=== PATIENT | male | born 1940 | race Caucasian/White ===

== ENCOUNTER → 2024-02-01 12:21 | Outpatient (CLI) | payer MEDICARE, OTHER, SELFPAY ==
--- NOTE | 2024-02-01 12:26 | DI.ECHO.S_ITS ---
[facility] +---------+ [facility] : : [address] : : [place] : : [id number] : : Phone: [phone] Echocardiogram Report + + :Name: JAI TALBOT Study Date: 02/01/2024 Height: 70 in : :Hospital ReadingLocation: Weight: 200 lb : : Gender: Male BSA: 2.1 m2 : :: 1940 Age: 83 yrs BP: 184/100 mmHg: :Reason For Study: ATRIAL FIBRILLATION : :Ordering Physician: ASMITA, : :GENEVA Performed By: Ilya Goins : :Referring: GENEVA FERRARA : + + Interpretation Summary 1) Normal left ventricular thickness and size with low normal systolic function (EF 50-55%). 2) Normal right ventricular size and function. 3) The left atrium is severely dilated. 4) There is mild to moderate aortic regurgitation. 5) The aortic root and ascending aorta are mildly dilated. 6) Hypertension present during the study (BP 184/100mHg). 7) No prior Echo available for comparison. Procedure: A two-dimensional transthoracic echocardiogram with color flow and Doppler was performed. The study quality was technically good. There is no prior echocardiogram noted for this patient. The patient was in atrial fibrillation with heart rates between 59-90 bpm during the exam. Left Ventricle: The left ventricle is normal in size. There is normal left ventricular wall thickness. There is no ventricular septal defect visualized. The ejection fraction is estimated to be 50-55%. There are no focal wall motion abnormalities. Diastolic function could not be accurately assessed due to atrial fibrillation. Right Ventricle: The right ventricle is normal in size and function. Atria: The left atrium is severely dilated. Right atrial size is normal. There is no Doppler evidence for an interatrial shunt. Mitral Valve: The mitral valve is normal in structure and function. There is mild mitral regurgitation. Aortic Valve: The aortic valve is trileaflet. The aortic valve opens well. There is mild to moderate aortic regurgitation. Tricuspid Valve: The tricuspid valve is normal in structure and function. There is mild tricuspid regurgitation. Pulmonic Valve: The pulmonic valve is normal in structure and function. There is mild pulmonic regurgitation. Great Vessels: The aortic root is mildly dilated. The ascending aorta is mildly enlarged. The pulmonary artery is normal size. The inferior vena cava was not visualized. Pericardium/ Pleura There is no pericardial effusion. MMode/2D Measurements & Calculations LVIDd: 4.6 cm LVOT diam: 2.1 cm LVIDs: 2.9 cm Ao root diam: 4.2 cm FS: 36.0 % asc Aorta Diam: 4.3 cm EPSS: 0.72 cm IVSd: 0.94 cm LVPWd: 1.0 cm LV acosta. diameter/BSA (cm/m^2): 2.2 LV sys. diameter/BSA (cm/m^2): 1.4 LA A2 area: 33.7 cm2 RA long axis: 5.6 cm LA A4 area: 34.0 cm2 RA area: 15.3 cm2 LA length (vol): 6.6 cm RA vol: 35.5 ml LA vol: 148.1 ml RA : 17.0 ml/m2 LA vol index: 71.0 ml/m2 RVD1 (basal): 3.8 cm RVD2 (mid): 3.0 cm TAPSE: 2.3 cm Doppler Measurements & Calculations Ao V2 max: 153.6 cm/sec LVOT Max Mehul: 109.6 cm/sec Ao V2 mean: 101.7 cm/sec LV V1 max P.8 mmHg Ao max P.4 mmHg LV V1 VTI: 26.1 cm Ao mean P.8 mmHg JOHN(I,D): 2.9 cm2 Ao V2 VTI: 29.8 cm JOHN(V,D): 2.4 cm2 sev ratio: 0.88 JOHN indexed to BSA (cm^2/m^2): 1.4 MV E max mehul: 79.5 cm/sec TR max mehul: 306.7 cm/sec MV A max mehul: 1.3 cm/sec TR max P.6 mmHg MV E/A: 61.9 PA V2 max: 63.8 cm/sec Med Peak E' Mehul: 6.6 cm/sec PA V2 mean: 46.5 cm/sec E/E' med: 12.0 PA mean P.92 mmHg Lat Peak E' Mehul: 7.1 cm/sec PA pr(Accel): 46.5 mmHg E/E' lat: 11.2 E/e' average: 11.6 MV dec time: 0.10 sec YEHUDA): 87.3 ml Reading Physician:05:[id number] PM
== END ==
LOC: ECHO 12:25
PROVIDERS: Referring Provider Internal Medicine Cardiovascular Disease; Visit Provider Internal Medicine Cardiovascular Disease
DX: I08.3 Combined rheumatic disorders of mitral, aortic and tricuspid valves (principal); I48.19 Other persistent atrial fibrillation; I77.810 Thoracic aortic ectasia; I77.89 Other specified disorders of arteries and arterioles
CPT/HCPCS: 93306

== ENCOUNTER → 2025-02-21 14:19 | Outpatient (CLI) | payer MEDICARE, OTHER, SELFPAY ==
--- NOTE | 2025-02-21 14:21 | DI.ECHO.S_ITS ---
[facility] +---------+ Hospital : : [address] : [place] : : [id number] : : Phone: [phone] Echocardiogram Report + + :Name: JAI TALBOT Study Date: 02/21/2025 Height: 72 in : :Hospital ReadingLocation: Weight: 190 lb : : Gender: Male BSA: 2.1 m2 : :: 1940 Age: 84 yrs BP: 130/78 mmHg: :Reason For Study: NONRHEUMATIC AORTIC VALVE INSUFFICIENCY : :Ordering Physician: STEFANIE, : :GENEVA Performed By: Ilya Goins : :Referring: GENEVA FERRARA : + + Interpretation Summary 1) Normal left ventricular thickness, size, and systolic function (EF 55-60%). 2) Normal right ventricular size and function. 3) The left atrium is severely dilated. 4) There is mild to moderate aortic regurgitation. 5) There is mild to moderate tricuspid regurgitation. 6) The right ventricular systolic pressure is estimated to be at least 65 mmHg based on an estimated right atrial pressure of 8 mm Hg. 7) The aortic root and ascending aorta are mildly dilated. 8) Compared to the echo done 02/01/2024, pulmonary hypertension is noted on this study. Procedure: A two-dimensional transthoracic echocardiogram with color flow and Doppler was performed. The study quality was technically good. Comparison is made with the echocardiogram of 02/01/2024. The patient was in atrial fibrillation with heart rates between 60-77 bpm during the exam. Left Ventricle: The left ventricle is normal in size. Left ventricular wall thickness is mildly increased. There is no ventricular septal defect visualized. The ejection fraction is estimated to be 55-60%. There are no focal wall motion abnormalities. Diastolic function could not be accurately assessed due to atrial fibrillation. Right Ventricle: The right ventricle is normal in size and function. Atria: The left atrium is severely dilated. The right atrium is borderline dilated. There is no Doppler evidence for an interatrial shunt. Mitral Valve: The mitral valve leaflets appear normal. There is no evidence of stenosis, fluttering, or prolapse. There is mild mitral regurgitation. Aortic Valve: The aortic valve is trileaflet. The aortic valve opens well. The aortic valve is slightly calcified. There is no aortic valve stenosis. There is mild to moderate aortic regurgitation. Tricuspid Valve: The tricuspid valve leaflets are thin and pliable. There is mild to moderate tricuspid regurgitation. The right ventricular systolic pressure is estimated to be at least 65 mmHg based on an estimated right atrial pressure of 8 mm Hg. Pulmonic Valve: The pulmonic valve leaflets are thin and pliable; valve motion is normal. There is mild to moderate pulmonic regurgitation. Great Vessels: The aortic root is mildly dilated. The ascending aorta is mildly enlarged. The pulmonary artery is normal size. The IVC is dilated (diameter is greater than 2.1 cm) yet it collapses greater than 50% with a sniff. This suggests a right atrial pressure of 8 mm Hg. Pericardium/ Pleura There is no pericardial effusion. There is no pleural effusion. MMode/2D Measurements & Calculations LVIDd: 4.4 cm LVOT diam: 2.0 cm LVIDs: 2.7 cm Ao root diam: 4.2 cm FS: 39.0 % asc Aorta Diam: 4.3 cm EPSS: 0.49 cm IVSd: 1.1 cm LVPWd: 1.0 cm LV acosta. diameter/BSA (cm/m^2): 2.1 LV sys. diameter/BSA (cm/m^2): 1.3 LA A2 area: 38.6 cm2 RA long axis: 6.6 cm LA A4 area: 32.0 cm2 RA area: 22.6 cm2 LA length (vol): 7.0 cm RA vol: 65.6 ml LA vol: 150.1 ml RA : 31.5 ml/m2 LA vol index: 72.0 ml/m2 IVC diam: 2.6 cm RVD1 (basal): 3.9 cm RVD2 (mid): 2.5 cm TAPSE: 1.9 cm Doppler Measurements & Calculations Ao V2 max: 135.4 cm/sec LVOT Max Mehul: 95.7 cm/sec Ao V2 mean: 94.0 cm/sec LV V1 max P.7 mmHg Ao max P.3 mmHg LV V1 VTI: 19.5 cm Ao mean P.9 mmHg JOHN(I,D): 2.2 cm2 Ao V2 VTI: 29.0 cm JOHN(V,D): 2.3 cm2 sev ratio: 0.67 JOHN indexed to BSA (cm^2/m^2): 1.0 AI P1/2t: 380.0 msec AI dec slope: 321.3 cm/sec2 MV E max mehul: 110.4 cm/sec TR max mehul: 377.9 cm/sec MV A max mehul: 24.3 cm/sec TR max P.1 mmHg MV E/A: 4.5 PA V2 max: 100.9 cm/sec Med Peak E' Mehul: 8.4 cm/sec PA V2 mean: 62.5 cm/sec E/E' med: 13.1 PA mean P.8 mmHg Lat Peak E' Mehul: 10.2 cm/sec PA pr(Accel): 49.9 mmHg E/E' lat: 10.8 E/e' average: 12.0 MV dec time: 0.19 sec SV(LVOT): 63.4 ml Reading Physician:04:57 PM
== END ==
PROVIDERS: Referring Provider Internal Medicine Cardiovascular Disease; Visit Provider Internal Medicine Cardiovascular Disease
DX: I08.2 Rheumatic disorders of both aortic and tricuspid valves (principal); I48.91 Unspecified atrial fibrillation; I77.810 Thoracic aortic ectasia; I77.89 Other specified disorders of arteries and arterioles
CPT/HCPCS: 93306